=== PATIENT | male | born 1995 | race African-American/Black ===

== ENCOUNTER 2020-08-05 08:50 | Emergency (ER) | payer BC, SELFPAY ==
[2020-08-05] MEDS ORDERED: Tetracaine 0.5% PF 4 ML BOT ONE (09:44)
[2020-08-05] MEDS ORDERED: Fluorescein Opthalmic Strip ONE (09:44)
== END 2020-08-05 11:17 | disposition home or self-care (01) ==
LOC: CSHERS 08:50
DX: H54.7 Unspecified visual loss (principal); J45.909 Unspecified asthma, uncomplicated; E66.9 Obesity, unspecified; F17.210 Nicotine dependence, cigarettes, uncomplicated
CPT/HCPCS: 70450